=== PATIENT | male | born 1990 | race Caucasian/White ===

== ENCOUNTER 2023-05-17 09:23 | Outpatient (CLI) | payer OTHER, SELFPAY ==
--- OUTSIDE RECORDS SUMMARY | 2023-05-17 09:32 | XMS_ITS | Data Portability ---
Author Name Unknown Address [address] [place] [address] Phone [phone] Organization [facility], [facility] Address [address] [place] [address] Assessment No assessment recorded. Plan of Treatment Reminders Order Date Submit Date Provider Last Modified By Organization Details Last Modified Time Details Appointments None recorded. Lab None recorded. Referral None recorded. Procedures vasectomy (PROC) 2022 Fortunato ledbetter Not available 3 12:57:32 Surgeries None recorded. Imaging None recorded. Medication Orders [place]y 5 mg-325 mg tablet 2022 023 [place], [place], [address] [place] [address], [address], 3 10:11:15 Valium 10 mg tablet 2022 023 [place], [place], [facility] [place], [address], 3 11:10:37 Patient TargetsNo targets recorded. Patient InstructionsNo instructions recorded. Reason for Referral None Reported. Procedures Surgical History Date Name Laterality Status Provider Name and Address Organization Details Recorded Time 3 TB Vasectomy completed Leo Whitaker MD [address] [facility] [address], [place], [address], [facility] 05/25/2022 22:08:09 Imaging Results None recorded. Procedure Notes None recorded. Medical Equipment None Reported. Allergies No known drug allergies Medications Name Sig Start Date Stop Date Status Note LastModified by Organization Details LastModified Time prednisone 10 mg tablet TAKE 4 TABLETS BY MOUTH ONCE DAILY WITH A MEAL FOR 3 DAYS, THEN 3 TABLETS FOR 3 DAYS, THEN 2 TABLETS DAILY FOR 3 DAYS, THEN 1 DAILY FOR 3 DA active Not Available Not Available No t Available hydrocodone 5 mg-acetaminop hen 325 mg tablet TAKE ONE TABLET BY MOUTH EVERY 6 HOURS active Not Available Not Available No t Available diazepam 10 mg tablet TAKE ONE TABLET BY MOUTH 30-40 MINUTES BEFORE PROCEDURE active Not Available Not Available No t Available Vitals None Recorded Social History Question Answer Notes LastModified by Organizat ion Details LastModified Time Tobacco Smoking Status Current Every Day Smoker Don Velasquez [place], [place] - [facility] 05/12/2022 10:47:47 What Is Your Level Of Alcohol Consumption? Occasional Information not available 05/12/2022 What Is Your Level Of Caffeine Consumption? Heavy Information not available 05/12/2022 Are You Currently Employed? Yes Information not available 05/12/2022 Recreational Drug Use No Information not available 05/12/2022 What Was The Date Of Your Most Recent Tobacco Screening? 05/12/2022 Information not available 05/12/2022 What Is Your Relationship Status? Information not available 05/12/2022 How Much Tobacco Do You Smoke? 0.25 PPD Information not available 05/12/2022 Do You Use Any Illicit Or Recreational Drugs? No Information not available 05/12/2022 Has Tobacco Cessation Counseling Been Provided? No Information not available 05/12/2022 How Many Years Have You Smoked Tobacco? 20 Information not available 05/12/2022 Sex: Male Functional Status None recorded. Mental Status None recorded. Family History Nothing Reported. Medical History Condition Response Sexually Transmitted Infection N Diabetes N Other N Bleeding Disorder N High Blood Pressure N Kidney Stones N High Cholesterol N GERD/Acid Reflux N Heart Disease N Cancer N Lung Disease N Depression N Past Encounters Encounter ID Performer Location Encounter Start Date Encounter Closed Date Diagnosis/Indication [id number] Leo Whitaker MD [facility] [address] [place] [address] 05/12/2022 10:31:11 05/19/2022 16:09:37 Counseling for sterilization done [id number] Leo Whitaker MD [facility] [address] [place] [address] 05/26/2022 09:12:32 05/28/2022 14:39:25 Male sterilization Health Concerns Section Related Observation LastModified by Organization Detai ls LastModified Time None Recorded Concern Status LastModified by Organization Details LastModified Time None Recorded Advance Directives Directive None Recorded Payers Encounter Date Sequence Insurance Name Policy Number Policy Encarnacion Covered Member ID Encarnacion Member ID Guarantor Name 05/26/2022 1 [employer] [id number] Dc Vázquez [id number] Cale Vázquez 05/12/2022 1 [employer] [id number] Dc Vázquez [id number] Cale Vázquez Notes Date Note Type Note Provider Name and Address Organization Details Recorded Time 05/12/2022 text/html HPI Notes: Vasectomy Consult Reported by patient. Notes: 31 yo male with history of morbid obesity and VASU - presents to discuss permanent sterilization. he was seen in [place] - provider was unable to find Left vas deferens. He is - has 4 girls (9, 6, 3, and 7 months) - uses condoms for control. He denies trouble with urination or erections. Occupation - construction. Leo Whitaker MD [address] [place] [address],[address], [address], [facility] 05/12/2022 13:29:56 05/26/2022 text/html HPI Notes: 31 yo male with history of morbid obesity and VASU - presents to discuss permanent sterilization. he was seen in [place] - provider was unable to find Left vas deferens. He is - has 4 girls (9, 6, 3, and 7 months) - uses condoms for control. He denies trouble with urination or erections. Occupation - construction. 05/26/22 - He presents for vasectomy. No change in history. Leo Whitaker MD [address] [place] [address],[address], [place], [address], [facility] 05/26/2022 10:11:34
--- OUTSIDE RECORDS SUMMARY | 2023-05-17 09:32 | XMS_ITS | Continuity of Care Document ---
Author Name Unknown Organization [facility] Address [address] [place] [address] Phone Care Team Providers Care Top Coater Name Role Phone Mayda ANTON, PhD, Braxton Unavailable Unavai lable Procedures Procedure Date Office/Outpatient Visit,[facility] 2020 Advance Directives Directive Yes / No Effective Date File Name No Information Encounters Encounter Description Practice Location Reason(s) For Visit Diagnoses Date Provider Providers Copied on Encounter Office/Outpat ient Visit,[facility], [address], [place], [place], [id number], [place] tel:[phone] [facility] Radiculopat hy, lumbar region Mayda Limon. [facility], [address], [place], [address], [place]. tel:[phone] Referring Provider: Maximino Moreira, [facility] [address], [place], [address]. tel:[phone] Family History Family Member Type Diagnosis Age At Onset No Information Payers Payer name Insurance type Covered republican ID Danielito hadley(s) Ariadne [id number] Social History Type Description Quantity Date Captured Comments Alcohol Use Details Unknown Caffeine Use Details Unknown Tobacco Use Status Smoking Status Unknown if ever smoked Luis-18-20 21 Non-Smoking Tobacco Use Details : No Details Available : No Details Available Sex Male Vital Signs Date / Time: Height Weight BMI Pulse Rate Blood Pressure Temperature Respiratory Rate Body Surface Area Head Circumference Head Circ. Percentile Wt./Alejo. Percentile BMI percentile Pulse Ox Inhaled Ox 2:23 PM 72.00 in 142.428 kg (314.00 lbs) 42.5 9 kg/m eter (2) 98.20 F Chief Complaint And Reason For Visit No Information Reason For Referral Reason For Referral No Information History Of Present Illness Encounter Date Complaint History Of Prese nt Illness No Information Functional Status Date Functional Assessmen t No Information Instructions Date Instruction Additional Infor mation No Information Assessments Type Assessment Date assessment Radiculopathy, lumbar region Apr Patient Care Teams Name Effective Dates (start - stop) Status Members No Information
--- OUTSIDE RECORDS SUMMARY | 2023-05-17 09:32 | XMS_ITS | Clinical Summary ---
Author Name Unknown Organization [facility] Address [place], [place] [address] Care Team Providers Care Pre Billing Specialist Name Role Phone Marleny Flores Primary Care Provider Claudia Lopez GROUP WORK PROGRAM AIDE Unavailable [phone] Allergies No known active allergies Medications Medication Sig Dispensed Refills Start Date End Date Status CPAPIndications:Ob structive sleep apnea CPAP machine for home use at pressure: 4-10 CM H20 , Heated humidifier x 1, Humidifier chamber x 1, Full face mask with cushion x 1, Heated tubing x 1, Headgear x 1, Filters: Disposable x 1pk & Reusable x 1pk, Length of Need: 99 months, Frequency of use: Daily 1 Device 0 03/11/2017 Active HYDROcodone-acetam inophen ([place]) 5-325 mg per tabletIndications: Lumbar radiculopathy Take 1 Tablet by mouth every 4 hours if needed for Pain. Max acetaminophen dose: 4000mg in 24 hrs. 18 Tablet 0 05/03/2022 Active methylPREDNISolone (Medrol, Gene,) 4 mg tabletIndications: Lumbar radiculopathy Take by mouth as instructed per packaging. 21 Tablet 0 04/14/2023 4 Discontinu ed(*Med complete/R egimen complete/L evel of care change) Active Problems Problem Noted Date Diagnosed Date Morbid obesity with BMI of 40.0-44.9, adult 05/2019 VASU (obstructive sleep apnea) 03/18/2017 Hyperinsulinemia 01/20/2011 Sleep deprivation 02/02/2008 Encounters Date Type Department Care Team Description 05/13/2023 Travel 04/27/2023 11:00 AM ENERGY CROP FARMER Office Visit [facility] [address] [place] [address] Shaun Tolliver MD Musculoskeletal Problem (Follow up back pain, last seen in 05/2020 for NICOLLE) 04/27/2023 Travel 04/23/2023 Travel 04/12/2023 9:00 AM ENERGY CROP FARMER Office Visit [facility] [address] [place] [address] Claudia Lopez NP Sleep Follow-up; Phone Visit (no vitals taken/) 04/12/2023 Telephone [facility] [address] [place] [address] Shaun Tolliver MD Appointment Request 04/12/2023 Travel from Last 3 Months Immunizations Name Administration Dates Next Due DTP 05/22/1992,03/17/1992,01/15/1992 DTaP 12/14/1996 HIB PRP-OMP (PedvaxHIB) 05/22/1992,03/17/1992, Hepatitis B (Peds) 02/20/1993,09/17/1992, 993 MMR 12/28/2001,02/20/1993 Oral Polio Vaccine 12/14/1996,05/22/1993, 992,01/15/1992 Tdap 10/25/2012 Family History Medical History Relation Name Comments Good Health Brother 2 Diabetes Father Good Health Mother Good Health Sister 2 X3 Relation Name Status Comments Brother 1 Alive Brother 2 Father Alive Mother Alive Sister 1 Alive X3 Sister 2 Social History Tobacco Use Types Packs/Day Years Used Date Smoking Tobacco: Every Day Cigarettes Smokeless Tobacco: Never Tobacco Cessation:Ready to Q uit: No; Counseling Given: Yes Alcohol Use Standard Drinks/Week Comments Yes 0 (1 standard drink = 0.6 oz pur e alcohol) Rarely PHQ-2 Answer Date Recorded PHQ-2 Score 0 08/09/2018 Social Connections Answer Date Recorded Frequency of Communication with Friends and Fami ly Not on file 04/21/2021 Financial Resource Strain Answer Date R ecorded Difficulty of Paying Living Expenses Not on file 04/21/2021 Difficulty of Paying Living Expenses Not on file 04/21/2021 Sex and Gender Information Value Date Recorded Sex Assigned at Not on file Gender Identity Not on file Sexual Orientation Not on file Obstetrics History Last Filed Vital Signs Vital Sign Reading Time Taken Comments Blood Pressure 140/93 04/27/2023 11:17 AM ENERGY CROP FARMER Pulse 91 04/27/2023 11:17 AM ENERGY CROP FARMER Temperature 36.8 ??C (98.2 ??F) 04/27/2023 1 1:17 AM ENERGY CROP FARMER Respiratory Rate 16 12/07/2021 6:19 PM CDT Oxygen Saturation 97% 04/27/2023 11: 17 AM ENERGY CROP FARMER Inhaled Oxygen Concentration - - Weight 156.9 kg (345 lb 12.8 oz) 2023 11:17 AM ENERGY CROP FARMER boots on Height 183.9 cm (6' 0.4) 06/25/2019 1:26 PM ENERGY [employer]OP F[employer]ER Body Mass Index 46.38 06/25/2019 1:26 PM ENERGY [employer]OP F[employer]ER Plan of Treatment Upcoming Encounters Date Type Department Care Team (Late st Contact Info) Description 05/17/2023 10:00 AM ENERGY CROP FARMER Office Visit [facility] [address] [place] [address] Shaun Tolliver MD [address] [place] [address] Arrived 05/18/2023 11:00 AM ENERGY CROP FARMER [place] [facility] [place] [address] [place] [address] Jessy Waldron, [place] [address] [place] [address] Health Maintenance Due Date Last Done Comments COVID-19 vaccine series (#1) 05/16/1992 Pneumococcal series for age 6-64 (1 of 2 - PCV) 11/13/1997 HIV for age 15-65 11/13/2006 Hepatitis C screening for ag e 18-79 11/13/2009 Depression screening for age 12+ 08/10/2019 08/09/2018, 06/13/2017, 07/02/2016 BMI (ht and wt on same day) for age 18+ 06/24/2020 06/25/2019, 06/18/2017, 03/18/2017, Additional history exists Tetanus booster 10/25/2022 10/25/2012 Influenza for age 9-49 12/24/2022 Tdap Completed 10/25/2012 Procedures Procedure Name Priority Date/Time Associated Diagnosis Comments AMB EPIDURAL STEROID INJECTION Routine 05/17/2023 8:08 AM ENERGY CROP F[employer]ER Lumbar radiculopathy Lumbar disc herniation from Last 3 Months Care Teams Pre Billing Specialist Relationship Specialty Start Date End Date Marleny Flores DO [address] [place] [address] PCP - General Family Practice 10/14/16 Claudia Lopez NP [address] [place] [address] Nurse Practitioner - Family 10/15/22
== END 2023-05-17 09:24 | disposition home or self-care (01) ==
LOC: INJ CL 09:25
PROVIDERS: PCP Family Medicine; Visit Provider Family Medicine
DX: M51.26 Other intervertebral disc displacement, lumbar region (principal); M54.16 Radiculopathy, lumbar region
CPT/HCPCS: 62323; J0702; Q9966